=== PATIENT | female | born 1945 | race Caucasian/White ===

== ENCOUNTER 2016-10-14 14:08 | Emergency (ER) | payer MEDICARE, BC ==
[~2016-10-14] VITALS: Ht 170.2 cm; Wt 113.0 kg
[~2016-10-14 14:08] MED LIST: HYDR-3111 PO; LOTR5CAP3 PO; ROBA750T3 PO; [UNRECOGNIZED DRUG - REMARK]
[2016-10-14 14:12] VITALS: BP 188/86; PULSE 100; RESP 17; TEMP 97.8; O2SAT 98
[2016-10-14] MEDS ORDERED: LOTR5CAP3 PO (14:22)
--- NOTE | 2016-10-14 14:55 | PD ---
HPI Chief Complaint: Pain: Acute or Chronic Time Seen by Provider: 14:20 Travel History International Travel<30 days: No Contact w/Intl Traveler<30days: No Traveled to known affect area: No History of Present Illness HPI Patient is a 71-year-old female presenting to the emergency room for evaluation of left knee and thigh pain and swelling secondary to a varicose vein. Patient states that the symptoms started last night after 7 PM, she noticed the pain over her left knee become more prominent, painful. She states the pain runs from the inner upper thigh to just below the kneecap anteriorly. She states last night the knee was fairly swollen and she put ice on it and elevated it. She states that the pain continued throughout the night but the swelling receded somewhat. She denies any calf pain or tenderness, no lower extremity swelling or redness. She was advised by her primary doctor to be evaluated in the emergency department. Patient has no history of DVT, no recent surgeries, no recent long trips. PFSH Past Medical History High Cholesterol: Yes Fibromyalgia: Yes Hypertension: Yes Past Surgical History Abdominal Surgery: Yes (hernia repair) Appendectomy: Yes Cholecystectomy: Yes Tonsillectomy: Yes Social History Alcohol Use: No Tobacco Use: No Allergies-Medications (Allergen,Severity, Reaction): Coded Allergies: No Known Allergies (Unverified , 08/21/14) Reported Meds & Prescriptions Reported Meds & Active Scripts Active Indomethacin 50 Mg Cap 50 Mg PO TID PRN 7 Days Take with food, milk, or antacids to decrease stomach adverse effects. Reported Lotrel (Amlodipine-Benazepril) 5-20 Mg Cap 1 Cap PO DAILY [vagtab?] Review of Systems Except as stated in HPI: all other systems reviewed are Neg Cardiovascular: Positive: Varicosities Musculoskeletal: Positive: Myalgias, Pain Physical Exam Narrative GENERAL: Bees, well-developed, alert elderly female. Resting comfortably in no acute distress. SKIN: Focused skin assessment warm/dry. Significant varicose veins noted over the left anterior knee extending from the medical left inner thigh to just distal to the left knee anteriorly. Tender to palpation. HEAD: Atraumatic. Normocephalic. EYES: Pupils equal and round. No scleral icterus. No injection or drainage. ENT: No nasal bleeding or discharge. Mucous membranes pink and moist. NECK: Trachea midline. No JVD. CARDIOVASCULAR: Regular rate and rhythm. No murmur appreciated. RESPIRATORY: No accessory muscle use. Clear to auscultation. Breath sounds equal bilaterally. GASTROINTESTINAL: Abdomen soft, non-tender, nondistended. Hepatic and splenic margins not palpable. MUSCULOSKELETAL: No obvious deformities. No clubbing. No cyanosis. No edema or erythema in left calf. Negative jennifer's sign. NEUROLOGICAL: Awake and alert. No obvious cranial nerve deficits. Motor grossly within normal limits. Normal speech. PSYCHIATRIC: Appropriate mood and affect; insight and judgment normal. Data Data Last Documented VS Vital Signs Date Time Temp Pulse Resp B/P Pulse Ox O2 Delivery O2 Flow Rate FiO2 10/14/16 14:12 97.8 100 17 188/86 98 Orders Us Leg Venous Doppler (10/14/16 ) MDM Medical Decision Making Medical Screen Exam Complete: Yes Emergency Medical Condition: Yes Interpretation(s) Vital Signs Date Time Temp Pulse Resp B/P Pulse Ox O2 Delivery O2 Flow Rate FiO2 10/14/16 14:12 97.8 100 17 188/86 98 Differential Diagnosis Superficial Thrombophlebitis vs DVT vs strain vs sprain vs other Narrative Course Patient is a 71-year-old female sent by her primary for evaluation of a possible DVT in her left leg. Physical examination appeared most consistent with thrombophlebitis however due to patient's size and age and ultrasound to rule out DVT was performed. Preliminary report of ultrasound show no occlusion. Patient will be sent home with indomethacin, she is encouraged to obtain compression hose for support. Advised to return to emergency department new or worsening symptoms. She verbalized understanding of these instructions. Patient is stable for discharge. Diagnosis Primary Impression: Thrombophlebitis Referrals: Primary Care Physician 3 days Patient Instructions: General Instructions, Superficial Thrombophlebitis (ED) Additional Instructions: Follow-up with her primary doctor Take medications as directed Return to the emergency department for any new or worsening symptoms Med/Other Pt SpecificInfo: Prescription(s) given Scripts Indomethacin 50 Mg Cap50 Mg PO TID PRN (PAIN SCALE 1 TO 10) 7 Days Ref 0 Take with food, milk, or antacids to decrease stomach adverse effects. Prov:Betsy Bailey 10/14/16 Disposition: 01 DISCHARGE HOME Condition: Stable Betsy Bailey Oct 14, 2016 14:55
[2016-10-14] MEDS ORDERED: INDO50CA PO (16:42)
--- NOTE | 2016-10-14 16:43 | PD ---
Data Data Last Documented VS Vital Signs Date Time Temp Pulse Resp B/P Pulse Ox O2 Delivery O2 Flow Rate FiO2 10/14/16 14:12 97.8 100 17 188/86 98 Orders Us Leg Venous Doppler (10/14/16 ) MDM Supervised Visit with TK: Yes Narrative Course I, Dr. Campos, have reviewed the advance practice practioner's documentation and am in agreement, met with the patient face to face, made the diagnosis, and the medical decision making was done by me. *My assessment and Findings: 71-year-old female with history of varicose veins here with an increasingly swollen, prominent and more painful vein in the left leg. Exam is consistent with thrombophlebitis versus DVT, swollen varicosity in the left leg. DVT ultrasound negative, patient reassured and discharged Diagnosis Primary Impression: Thrombophlebitis Referrals: Primary Care Physician 3 days Patient Instructions: General Instructions, Superficial Thrombophlebitis (ED) Additional Instruction: Follow-up with her primary doctor Take medications as directed Return to the emergency department for any new or worsening symptoms Scripts Indomethacin 50 Mg Cap50 Mg PO TID PRN (PAIN SCALE 1 TO 10) 7 Days Ref 0 Take with food, milk, or antacids to decrease stomach adverse effects. Prov:Betsy Bailey 10/14/16 Disposition: 01 DISCHARGE HOME Condition: Stable Aylin Campos MD Oct 14, 2016 16:43
--- NOTE | 2016-10-14 16:47 | RADRPT ---
EXAM DATE/TIME: 10/14/2016 16:28 [facility] COMPARISON: No previous studies available for comparison. INDICATIONS : Left leg pain. MEDICAL HISTORY : Hypertension. Hypercholesterolemia. Fibromyalgia. SURGICAL HISTORY : Cholecystectomy. Appendectomy. Tonsillectomy. Hernia repair. Right knee surgery. ENCOUNTER: Initial ACUITY: 2 day PAIN SCORE: 4/10 LOCATION: Left leg. TECHNIQUE: Venous ultrasound of the leg was performed from the inguinal ligament to the proximal calf. Real-kishor e, color Doppler and spectral tracing, compression and augmentation techniques were used. FINDINGS: There is normal compressibility of the deep venous system from the inguinal region to the proximal ca lf. No echogenic clot is seen in the lumen of the common femoral, femoral, popliteal, and posterior tibial veins. There is a normal response of the venous system to proximal and distal augmentation an d respiration. CONCLUSION: Normal examination. Aris Cano MD on October 14, 2016 at 16:45 Board Certified Radiologist. This report was verified electronically.
== END 2016-10-14 16:49 | disposition home or self-care (01) ==
LOC: NEPD 14:08
DX: I80.02 Phlebitis and thrombophlebitis of superficial vessels of left lower extremity (principal)
CPT/HCPCS: 93971